=== PATIENT | female | born 1950 ===

== ENCOUNTER 2019-08-29 15:57 | Emergency (ER) | payer MEDICARE ==
[~2019-08-29] VITALS: Ht 162.6 cm; Wt 59.1 kg
[~2019-08-29 15:57] MED LIST: ACET-2247 PO; ALBU8.5H8 IH; ATOR40TA28 PO; BECL10.6 IH; CARV12 PO; CEPH500 PO; CLOP75TA3 PO; DOCU-275 PO; ENOX40DI9 SQ; FURO20 PO; HYDR-4455 PO; INSLAN SQ; INSU100V SQ; NITR0.4T52 SL; PREG50 PO; TRAM50TA4 PO; ZOLP10TA7 PO
[2019-08-29 16:37] LABS: BASOPHILS % (AUTO) 0.7 % (0.0-2.0); EOSINOPHILS % (AUTO) 0.3 % (1.0-6.0); HEMATOCRIT 45.7 % (36-46); HEMOGLOBIN 15.4 g/dL (12.0-16.0); LYMPHOCYTES # (AUTO) 1.3 K/uL (1.0-4.8); LYMPHOCYTES % (AUTO) 17.9 % (22.0-44.0); MEAN CORPUSCULAR HEMOGLOBIN 30.7 pg (26.0-34.0); MEAN CORPUSCULAR HGB CONC 33.6 G/dL (31.0-37.0); MEAN CORPUSCULAR VOLUME 92 fL (80-100); MONOCYTES # (AUTO) 0.3 K/uL (0.1-1.0); MONOCYTES % (AUTO) 4.8 % (2.0-9.0); NEUTROPHILS # (AUTO) 5.5 K/uL (1.8-7.7); NEUTROPHILS % (AUTO) 76.3 % (40.0-70.0); PLATELET COUNT (AUTO) 278 K/uL (150-450); RED CELL DISTRIBUTION WIDTH 14.7 % (11.5-14.5)
[2019-08-29 16:39] LABS: GLUCOSE,POINT OF CARE 194 MG/DL (70-110)
[2019-08-29 16:40] LABS: ANION GAP 11 mmol/L (8-16); CARBON DIOXIDE 28 mmol/L (22-29); CHLORIDE 97 mmol/L (98-107); GLOMERULAR FILTR. RATE CALC > 60 mL/min (>60); GLUCOSE,RANDOM 208 mg/dL (70-110); POTASSIUM 3.6 mmol/L (3.5-5.1); SODIUM SERUM 136 mmol/L (136-145); UREA NITROGEN, BLOOD 16 mg/dL (7-18)
[2019-08-29] MEDS ORDERED: CARVEDILOL 3.125 MG TABLET PO ONE (17:00)
[2019-08-29] MEDS ORDERED: FUROSEMIDE 20 MG TABLET PO ONE (17:00)
[2019-08-29 19:56] VITALS: BP 129/80
== END 2019-08-29 20:15 | disposition home or self-care (01) ==
LOC: EMS 16:01
DX: R45.1 Restlessness and agitation (principal); E78.00 Pure hypercholesterolemia, unspecified; I10 Essential (primary) hypertension; J44.9 Chronic obstructive pulmonary disease, unspecified; G89.29 Other chronic pain; F17.210 Nicotine dependence, cigarettes, uncomplicated; Z79.899 Other long term (current) drug therapy; Z79.4 Long term (current) use of insulin; Z88.0 Allergy status to penicillin; Z88.6 Allergy status to analgesic agent; Z88.5 Allergy status to narcotic agent